=== PATIENT | female | born 1980 | race African-American/Black ===

== ENCOUNTER 2024-10-12 18:32 | Emergency (ER) | payer OTHER ==
[~2024-10-12] VITALS: Ht 167.6 cm; Wt 66.0 kg
[2024-10-12 18:45] VITALS: O2SAT 98
[2024-10-12] MEDS: HYDROCODONE/ACETAMINOPHEN 5/325MG TABLET PO ONE (21:00)
[2024-10-12 21:55] VITALS: BP 153/99; PULSE 77; RESP 18; TEMP 36.8; O2SAT 97
== END 2024-10-12 22:00 | disposition home or self-care (01) ==
LOC: ER 18:32
DX: S00.83XA Contusion of other part of head, initial encounter (principal); Z88.1 Allergy status to other antibiotic agents; Z88.2 Allergy status to sulfonamides; V43.52XA Car driver injured in collision with other type car in traffic accident, initial encounter; Y93.89 Activity, other specified; Y92.410 Unspecified street and highway as the place of occurrence of the external cause; Y99.8 Other external cause status
CPT/HCPCS: 99284